=== PATIENT | male | born 1970 | race Two or more races ===

== ENCOUNTER 2020-01-26 12:11 | Emergency (ER) | payer OTHER ==
[~2020-01-26] VITALS: Ht 165.1 cm; Wt 82.4 kg
[2020-01-26] MEDS ORDERED: ASPIRIN 81 MG TABLET CHEW PO ONE (12:30)
[2020-01-26 12:44] LABS: BASOPHILS # (AUTO) 0.02 x10^3/uL (0-0.1); BASOPHILS % (AUTO) 0 % (0-1); EOSINOPHILS # (AUTO) 0.12 x10^3/uL (0-0.4); EOSINOPHILS % (AUTO) 2 % (1-7); LYMPHOCYTES % (AUTO) 35 % (22-44); MD NO; MEAN CORPUSCULAR HEMOGLOBIN 30.8 pg (27.5-34.5); MEAN CORPUSCULAR HGB CONC 34.5 g/dL (33.2-36.2); MEAN CORPUSCULAR VOLUME 89.4 fL (81-97); MEAN PLATELET VOLUME 8.1 fL (7.4-10.4); MONOCYTES # (AUTO) 0.28 x10^3/uL (0.2-0.8); MONOCYTES % (AUTO) 5 % (2-9); NEUTROPHILS # (AUTO) 3.27 x10^3/uL (1.8-6.8); NEUTROPHILS % (AUTO) 58 % (42-75); PLATELET COUNT 234 x10^3/uL (130-400); RED BLOOD COUNT 5.12 x10^6/uL (4.38-5.82); RED CELL DISTRIBUTION WIDTH 13.5 % (9.4-14.8)
[2020-01-26 12:52] LABS: ALBUMIN 4.2 g/dL (3.4-5.0); ANION GAP 4 mmol/L (5-15); CALCIUM 8.9 mg/dL (8.5-10.1); CHLORIDE 108 mmol/L (98-107)
[2020-01-26 12:58] LABS: ALANINE AMINOTRANSFERASE 34 U/L (12-78); BILIRUBIN,TOTAL 0.8 mg/dL (0.2-1.0); CREATININE 0.88 mg/dL (0.7-1.3); TOTAL PROTEIN 7.7 g/dL (6.4-8.2); TROPONIN I < 0.015 ng/mL (0.000-0.045)
[2020-01-26 13:00] LABS: ALKALINE PHOSPHATASE 68 U/L (45-117)
--- NOTE | 2020-01-26 13:31 | NUR ---
sliver cutter note: Pt to room from [facility], ambulatory with steady gait, MARKO.
[2020-01-26] MEDS ORDERED: ASPIRIN 81 MG TABLET CHEW ONE (13:46)
[2020-01-26] MEDS ORDERED: CYCLOBENZAPRINE 10 MG TABLET PO ONE (14:30)
[2020-01-26] MEDS ORDERED: KETOROLAC 30 MG/1 ML IM ONE (14:30)
[2020-01-26] MEDS ORDERED: CYCLOBENZAPRINE 10 MG TABLET ONE (14:32)
[2020-01-26] MEDS ORDERED: KETOROLAC 30 MG/1 ML ONE (14:32)
--- NOTE | 2020-01-26 14:34 | NUR ---
TASK RN: PT MEDICATED PER MAR
[2020-01-26 14:37] VITALS: BP 132/70
== END 2020-01-26 14:56 | disposition home or self-care (01) ==
LOC: ED 13:42
DX: R07.89 Other chest pain (principal)
CPT/HCPCS: 36415; 71045; 80053; 84484; 85025; 93005; 96372; 99285; J1885